=== PATIENT | male | born 1940 | race Caucasian/White ===

== ENCOUNTER 2016-10-18 08:20 | Day surgery (SDC) | payer MEDICARE, BC ==
[~2016-10-18] VITALS: Ht 172.7 cm; Wt 74.5 kg
[2016-10-18] MEDS ORDERED: LISINOPRIL5 MG PO (09:13)
[2016-10-18] MEDS ORDERED: METOPROLOL TART50 MG PO (09:13)
[2016-10-18] MEDS ORDERED: HYTRIN5 MG PO (09:13)
[2016-10-18] MEDS ORDERED: TIMOPTIC 0.5 % O5 ML EACH EYE (09:14)
[2016-10-18] MEDS ORDERED: XALATAN 0.0052.5 ML EACH EYE (09:14)
[2016-10-18] MEDS ORDERED: ZANTAC150 MG PO (09:15)
[2016-10-18 09:19] LABS: BASOPHILS 0.2 % (0-2); EOSINOPHILS 3.3 % (0-7); HEMATOCRIT 37.1 % (42.0-54.0); HEMOGLOBIN 12.3 g/dL (13.5-17.5); IMMATURE GRANULOCYTES 0.2 % (0-5); LYMPHOCYTES 36.6 % (15-50); MCH 32.9 pg (26.0-34.0); MCHC 33.2 g/dL (31.0-37.0); MCV 99.2 fL (80.0-100.0); MONOCYTES 12.5 % (2-11); NEUTROPHILS 47.2 % (40-80); PLATELET COUNT 140 10x3/uL (130-400); RBC 3.74 10x6/uL (4.20-6.10); RDW 12.7 % (11.5-14.5); WBC 5.4 10x3/uL (4.8-10.8)
[2016-10-18 09:23] VITALS: BP 129/64; Ht 172.7 cm; Wt 74.5 kg
[2016-10-18 09:32] LABS: ANION GAP 9.1 mmol/L (8-16); CALCIUM 9.1 mg/dL (8.5-10.1); CARBON DIOXIDE 30.1 mmol/L (21.0-32.0); CREATININE - SERUM 1.2 mg/dL (0.6-1.3); POTASSIUM - SERUM 4.2 mmol/L (3.5-5.1)
[2016-10-18 10:54] LABS: ALBUMIN 3.3 g/dL (3.4-5.0); BILIRUBIN - DIRECT 1.42 mg/dL (0.00-0.30); BILIRUBIN - INDIRECT 0.8 mg/dL (0.00-1.00); BILIRUBIN - TOTAL 2.22 mg/dL (0.2-1.3); PROTEIN - SERUM 7.2 g/dL (6.4-8.2)
--- NOTE | 2016-10-18 12:13 | NUR ---
55.4 XRAY TIME AND 19 MLS CONTRAST.
--- NOTE | 2016-10-18 13:02 | NUR ---
1250-RECD TO ROOM FROM PACU. AROUSES EASILY. RESP WITH EASE. 1300-FULL LIQUIDS SERVED, NO NAUSEA.
--- NOTE | 2016-10-23 16:52 | OP ---
PATIENT NAME: MAI HERNÁNDEZ MEDICAL RECORD: [id number] :40 LOCATION:D.OPS ADMISSION DATE: SURGEON: ERENDIRA CALDWELL DO OPERATION DATE: 10/18/16 PROCEDURE: Endoscopic retrograde cholangiopancreatography with sphincterotomy. INDICATION: Hyperbilirubinemia, elevated liver enzyme, and abnormal imaging of the bile duct with a dilated duct. SCOPE: Olympus video side viewing duodenoscope. MEDICATIONS: Propofol IV per anesthesia. The patient was intubated under general anesthesia. ESTIMATED BLOOD LOSS: Minimal. COMPLICATIONS: None. FINDINGS: Informed consent was given. The patient was made comfortable with and induction agent and intubated for general anesthesia. The patient was placed in a semiprone position with a roll under the right chest. A timeout was performed to ensure the correct patient and procedure. The endoscope was then advanced under direct visualization through the mouth down to the second portion of the duodenum where the ampulla was encountered. The ampulla appeared normal although in fact there was not an obvious ampullary orifice. There was no adenomatous appearing tissue. There was a medium size diverticulum around the ampulla which I feel likely has contributed to the imaging suggesting protrusion of the ampulla into the lumen. A sphincterotome loaded with a guidewire was used to cannulate the orifice. A guidewire was easily placed up into the bile duct deeply successfully. The guidewire was left in place as a cholangiogram was performed. The cholangiogram appeared normal without evidence of stones or debris. The duct was dilated up to approximately 12 millimeters in diameter. A sphincterotomy to approximately 8 or 9 millimeters was performed. There was good bile flow from the ampulla status post sphincterotomy. A 8.5 to 15 millimeter sweeping balloon was placed into the duct and used for multiple sweeps at approximately 12 millimeters. The 9 millimeter balloon would pull through the sphincterotomy successfully. There was no debris or calculi removed. Good flow was noted from the ampulla. The procedure was terminated at this time. The scope was completely withdrawn from the patient. The patient tolerated the procedure well. There were no complications. IMPRESSIONS: Dilated bile duct, but otherwise normal cholangiogram and endoscopic retrograde cholangiopancreatography with sphincterotomy. PLAN/RECOMMENDATIONS: 1. Discharge home when recovery parameters are met. 2. Continue current diet. 3. Continue current medications. 4. Follow up in gastroenterology clinic in two to three weeks for repeat laboratory studies for monitoring of liver enzymes and hyperbilirubinemia. My feeling is that the sphincterotomy alone will likely correct these abnormalities. If he continues to have elevated liver enzymes and bilirubin levels, further workup should be undertaken to discover the cause. 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
== END 2016-10-18 14:15 | disposition home or self-care (01) ==
LOC: D.OPS 08:20
PROVIDERS: Anesthesiology; Internal Medicine Gastroenterology
DX: K83.8 Other specified diseases of biliary tract (principal); R74.8 Abnormal levels of other serum enzymes; R12 Heartburn; R63.4 Abnormal weight loss; Z01.812 Encounter for preprocedural laboratory examination